=== PATIENT | female | born 1995 | race Caucasian/White ===

== ENCOUNTER 2017-05-30 15:53 | Emergency (ER) | payer OTHER ==
[~2017-05-30] VITALS: Ht 152.4 cm; Wt 45.4 kg
[2017-05-30 16:08] VITALS: BP 113/66
--- NOTE | 2017-05-30 17:23 | NUR ---
PT AMBULATED TO ER CHAIR E
--- NOTE | 2017-05-30 17:28 | NUR ---
DR HOLLIS BY CHAIR FOR EXAM
[2017-05-30] MEDS ORDERED: ONDANSETRON 4 MG/2 ML VIAL IVP ONE (17:30)
[2017-05-30] MEDS ORDERED: NACL 0.9% 1,000 ML IV ONE (17:30)
[2017-05-30] MEDS ORDERED: KETOROLAC 30 MG/ML VIAL IVP ONE (17:30)
--- NOTE | 2017-05-30 17:30 | NUR ---
PT. CAME IN WITH C/O OF HEADACHE, AND CHEST PAIN 4/10, NAUSEA DUE TO PASSING OUT AT 1300 AT HER BOYFRIENDS HOUSE. PT. COMPLAINS OF NAUSEA SINCE SHE PASSED OUT , CLAIMS THAT HER VISION WENT BLACK AND DID NOT KNOW FOR HOW LONG. SHE ALSO COMPLAINS OF NON RADIATING CHEST PAIN AND DESCRIBED IT DULL 4/10, PT HAS NO DIFFICULTY BREATHING OR SOB. HEADACHE SHE RATES IT 5/10 THAT DOES NOT RADIATE IT IS CENTRALIZED IN THE FRONT OF HER FOREHEAD. RR EVEN AND UNLABORED.
[2017-05-30 17:55] LABS: BASOPHILS # (AUTO) 0.3 K/uL (0.00-0.22); EOSINOPHILS # (AUTO) 0.1 K/uL (0-0.4); HEMATOCRIT 46.5 % (36-48); HEMOGLOBIN 15.1 g/dL (12.0-16.0); LYMPHOCYTES # (AUTO) 2.1 K/uL (2.5-16.5); MEAN CORPUSCULAR HEMOGLOBIN 30 pg (27-31); MEAN CORPUSCULAR HGB CONC 33 g/dL (33-37); MEAN CORPUSCULAR VOLUME 90.9 fL (80-94); MONOCYTES # (AUTO) 0.6 K/uL (0.8-1.0); NEUTROPHILS # (AUTO) 7.1 K/uL (1.8-7.7); PLATELET COUNT (AUTO) 311 K/uL (140-450); RED BLOOD CELL COUNT(AUTO) 5.11 MIL/uL (4.20-5.40); RED CELL DISTRIBUTION WIDTH 12.5 % (11.6-13.7); WHITE BLOOD COUNT (AUTO) 10.2 K/uL (4.8-10.8)
[2017-05-30 18:03] LABS: APPEARANCE,URINE CLEAR (CLEAR); BILIRUBIN,URINE NEGATIVE (NEGATIVE); BLOOD, URINE NEGATIVE (NEGATIVE); COLOR,URINE YELLOW (YELLOW); LEUKOCYTE ESTERASE ,URINE NEGATIVE (NEGATIVE); NITRITE, URINE NEGATIVE (NEGATIVE); UGLUCOSE NEGATIVE (NEGATIVE)
[2017-05-30 18:06] LABS: BARBITURATE, URINE NEG. ng/ml (NEG <=200); BENZODIAZEPINE, URINE NEG. ng/mL (NEG <=200); CANNABINOID, URINE NEG. ng/mL (NEG <=50); COCAINE, URINE NEG. ng/mL (NEG <=300); OPIATE, URINE NEG. ng/mL (NEG <=2000); PHENCYCLIDINE SCREEN,URINE NEG. ng/mL (NEG <=25)
[2017-05-30 18:24] LABS: ANION GAP 14.6 (8-16); CARBON DIOXIDE 27.5 mmol/L (21-32); CREATININE 0.9 mg/dL (0.6-1.3); POTASSIUM 4.1 mmol/L (3.5-5.1)
[2017-05-30 18:40] LABS: ALBUMIN 4.3 g/dL (3.4-5.0); FREE T4 (FREE THYROXINE) 0.94 ng/dL (0.76-1.46); THYROID STIMULATING HORMONE 0.69 uIU/mL (0.34-3.74); TOTAL BILIRUBIN 0.4 mg/dL (0.0-1.0)
--- NOTE | 2017-05-30 19:00 | NUR ---
PT. FINISHED BOLUS NADR NOTED , NO COMPLAINTS BY PT.
[2017-05-30 19:16] VITALS: BP 113/66
--- NOTE | 2017-05-30 19:17 | NUR ---
Patient discharged with v/s stable. Written and verbal after care instructions given and explained. Patient verbalized understanding. Ambulatory with steady gait. All questions addressed prior to discharge. Advised to follow up with PMD.
== END 2017-05-30 19:17 | disposition home or self-care (01) ==
LOC: MED 15:53
DX: R53.1 Weakness (principal); R42 Dizziness and giddiness; R51 Headache
CPT/HCPCS: 36415; 70450; 71045; 80053; 80305; 81003; 81025; 84439; 84443; 84702; 85025; 93005; 96361; 96374; 96375; 99285; J1885; J2405